=== PATIENT | male | born 1955 | race Caucasian/White ===

== ENCOUNTER 2018-11-03 11:16 | Day surgery (SDC) | payer BC ==
[2018-11-03] MEDS ORDERED: Depo-Medrol 40 MG/ML IM ONE (11:17)
[2018-11-03] MEDS ORDERED: Marcaine 0.5% SDV 10 ML IJ ONE (11:17)
[2018-11-03] MEDS ORDERED: DIPRIVAN 200 MG/20 ML IV ONE (12:13)
[2018-11-03] MEDS ORDERED: Ketamine HCl 50 MG/ML ONE (12:13)
--- NOTE | 2018-11-03 13:49 | XRAY ---
Indication: Right SI joint injection. Intraoperative fluoroscopy was provided for 16 seconds. 2 digital spot images submitted for interpretation demonstrates posterior needle tip projecting over the inferior right SI joint. Correlate with intraoperative findings/report.
--- NOTE | 2018-11-03 14:12 | XRAY ---
16 seconds fluoroscopy time in surgery for right SI joint injection.
[2018-11-03] MEDS ORDERED: Lactated Ringers 1,000 ML IV ONE (15:25)
== END 2018-11-03 12:44 | disposition home or self-care (01) ==
LOC: SDC-PAIN 11:16
PROVIDERS: ATTEND Psychiatry & Neurology Pain Medicine
DX: M46.1 Sacroiliitis, not elsewhere classified (principal); I10 Essential (primary) hypertension; E78.5 Hyperlipidemia, unspecified; K21.9 Gastro-esophageal reflux disease without esophagitis; Z79.899 Other long term (current) drug therapy
CPT/HCPCS: 27096; 72020; 77002; J1030; J2704; G0260

== ENCOUNTER 2019-02-02 09:53 | Day surgery (SDC) | payer BC ==
[2019-02-02] MEDS ORDERED: Marcaine 0.5% SDV 10 ML IJ ONE (09:54)
[2019-02-02] MEDS ORDERED: Depo-Medrol 40 MG/ML IM ONE (09:54)
[2019-02-02] MEDS ORDERED: DIPRIVAN 200 MG/20 ML IV ONE (11:22)
[2019-02-02] MEDS ORDERED: Ketamine HCl 50 MG/ML ONE (11:22)
--- NOTE | 2019-02-02 12:49 | XRAY ---
Indication: Right SI joint injection. Intraoperative fluoroscopy was provided for 10 seconds. 2 digital spot images submitted for interpretation demonstrates posterior needle tip projecting over the inferior right SI joint. Correlated with intraoperative findings/report.
--- NOTE | 2019-02-02 13:02 | XRAY ---
10 seconds fluoroscopy time in surgery for right SI joint injection.
[2019-02-02] MEDS ORDERED: Lactated Ringers 1,000 ML IV ONE (18:21)
== END 2019-02-02 11:50 | disposition home or self-care (01) ==
LOC: SDC-PAIN 09:53
PROVIDERS: ATTEND Psychiatry & Neurology Pain Medicine
DX: M46.1 Sacroiliitis, not elsewhere classified (principal); I10 Essential (primary) hypertension; K21.9 Gastro-esophageal reflux disease without esophagitis; E78.5 Hyperlipidemia, unspecified; Z79.899 Other long term (current) drug therapy; E78.00 Pure hypercholesterolemia, unspecified
CPT/HCPCS: 27096; 72020; 77002; J1030; J2704; G0260

== ENCOUNTER 2019-03-09 14:09 | Day surgery (SDC) | payer BC ==
[2019-03-09] MEDS ORDERED: Marcaine 0.5% SDV 10 ML IJ ONE (14:10)
[2019-03-09] MEDS ORDERED: Xylocaine 1% Vial 30 ML PF IJ ONE (14:10)
[2019-03-09] MEDS ORDERED: Depo-Medrol 40 MG/ML IM ONE (14:10)
[2019-03-09] MEDS ORDERED: VERSED 5 MG/5 ML ONE (14:39)
[2019-03-09] MEDS ORDERED: DIPRIVAN 200 MG/20 ML IV ONE ×2 (15:09→15:19)
[2019-03-09] MEDS ORDERED: Ketamine HCl 50 MG/ML ONE (15:09)
[2019-03-09] MEDS ORDERED: Lactated Ringers 1,000 ML IV ONE (16:03)
--- NOTE | 2019-03-09 16:42 | XRAY ---
Indication: Right SI joint injection. Intraoperative fluoroscopy was provided for 33 seconds. 4 digital spot image submitted for interpretation demonstrates 4 posterior needle tips projecting over the right sacrum. Correlate with intraoperative findings/report.
--- NOTE | 2019-03-09 16:44 | XRAY ---
33 seconds fluoroscopy time in surgery for right SI joint injection.
== END 2019-03-09 15:57 | disposition home or self-care (01) ==
LOC: SDC-PAIN 14:09
PROVIDERS: ATTEND Psychiatry & Neurology Pain Medicine
DX: M46.1 Sacroiliitis, not elsewhere classified (principal); I10 Essential (primary) hypertension; E78.5 Hyperlipidemia, unspecified; E78.00 Pure hypercholesterolemia, unspecified; K21.9 Gastro-esophageal reflux disease without esophagitis; Z79.899 Other long term (current) drug therapy
CPT/HCPCS: 64635; 64640; 72202; 77002; J1030; J2001; J2250; J2704

== ENCOUNTER 2020-10-17 17:19 | Day surgery (SDC) | payer MEDICARE, BC ==
[2020-10-17] MEDS ORDERED: BUPIVACAINE 0.5% VIAL IJ ONE (17:20)
[2020-10-17] MEDS ORDERED: Xylocaine 1% Vial 30 ML PF IJ ONE (17:20)
[2020-10-17] MEDS ORDERED: Depo-Medrol 40 MG/ML IM ONE (17:20)
--- NOTE | 2020-10-17 21:00 | XRAY ---
Indication: Left knee injection. Intraoperative fluoroscopy provided for 12 seconds. Single digital spot image submitted for interpretation demonstrates needle tip projecting over the left femur intercondylar notch. Small amount of contrast injected for needle tip placement. Correlate with intraoperative findings/report.
--- NOTE | 2020-10-18 08:44 | XRAY ---
12 seconds of fluoroscopy was used in surgery for a left intra-articular knee injection.
== END 2020-10-17 19:40 | disposition home or self-care (01) ==
LOC: SDC-PAIN 17:19
PROVIDERS: ATTEND Psychiatry & Neurology Pain Medicine
DX: M17.12 Unilateral primary osteoarthritis, left knee (principal); Z79.899 Other long term (current) drug therapy
CPT/HCPCS: 20610; 73560; 77002; J1030; J2001; Q9966

== ENCOUNTER 2021-03-12 08:18 | Day surgery (SDC) | payer MEDICARE, BC ==
[~2021-03-12 08:18] MED LIST: ACETAZOLAMIDE 250 MG TABLET PO ONE; Ak-Dilate OPHTHALMIC*** 1.065 ML, Cyclogyl 1% OPHTH SOL 5 ML 1.065 ML, GATIFLOXACIN 0.5... OP ONE; BETADINE 5% OPHTHALMIC 30 ML OP ONE; Lactated Ringers 1,000 ML IV SCH; NON-FORMULARY ITEM OP ONE; TETRACAINE 0.5% STERI-UNIT SOL OP ONE; Zofran 4 MG/2 ML VIAL IV PRN; cefUROXime sodium 0.005 GM in Sodium Chloride Flush 30 ML*** 0.5 ML IJ ONE
[2021-03-12] MEDS ORDERED: Epinephrine Preservative Free 1 MG/ML IJ ONE (08:19)
[2021-03-12] MEDS ORDERED: LIDOCAINE HCL 1% 50 MG/5 ML VL PF IJ ONE (08:19)
[2021-03-12] MEDS ORDERED: Lactated Ringers 1,000 ML IV ONE (08:56)
[2021-03-12] MEDS ORDERED: Versed 2 MG/2 ML Injection ONE (11:27)
[2021-03-12] MEDS ORDERED: SUBLIMAZE 100 MCG/2 ML ONE (11:30)
[2021-03-12] MEDS ORDERED: DIPRIVAN 200 MG/20 ML IV ONE (11:34)
[2021-03-12 12:34] VITALS: BP 118/72; PULSE 65; O2SAT 100
== END 2021-03-12 12:45 | disposition home or self-care (01) ==
LOC: SDC 08:18
PROVIDERS: ATTEND Ophthalmology
DX: H25.811 Combined forms of age-related cataract, right eye (principal); Z79.899 Other long term (current) drug therapy
CPT/HCPCS: C1780; J0171; J2001; J2250; J2704; J3010; A9270-GY

== ENCOUNTER 2021-05-29 15:18 | Day surgery (SDC) | payer MEDICARE, BC ==
[2021-05-29] MEDS ORDERED: Xylocaine 1% Vial 30 ML PF IJ ONE (18:00)
[2021-05-29] MEDS ORDERED: Decadron 4 MG INJ IV ONE (18:00)
--- NOTE | 2021-05-29 20:43 | XRAY ---
Indication: Left piriformis injection. Intraoperative fluoroscopy provided for 17 seconds. Single digital spot image submitted for interpretation demonstrates posterior needle tip projecting over the expected left piriformis muscle. Small amount of contrast injected for needle tip placement. Correlate with intraoperative findings/report.
--- NOTE | 2021-05-30 08:58 | XRAY ---
17 seconds fluoroscopy time in surgery for injection of the left piriformis muscle.
== END 2021-05-29 18:35 | disposition home or self-care (01) ==
LOC: SDC-PAIN 15:18
PROVIDERS: ATTEND Psychiatry & Neurology Pain Medicine
DX: M79.18 Myalgia, other site (principal); I10 Essential (primary) hypertension; Z79.899 Other long term (current) drug therapy
CPT/HCPCS: 20552; 72020; 77002; J1100; J2001; Q9966

== ENCOUNTER 2021-07-03 08:28 | Day surgery (SDC) | payer MEDICARE, BC ==
[2021-07-03] MEDS ORDERED: Depo-Medrol 40 MG/ML IM ONE (08:29)
[2021-07-03] MEDS ORDERED: BUPIVACAINE 0.5% VIAL IJ ONE (08:29)
[2021-07-03] MEDS ORDERED: Xylocaine 1% Vial 30 ML PF IJ ONE (08:29)
[2021-07-03] MEDS ORDERED: Decadron 4 MG INJ IV ONE (08:29)
--- NOTE | 2021-07-03 11:54 | XRAY ---
Indication: Left SI joint and left piriformis injections Intraoperative fluoroscopy provided for 24 seconds. 3 digital spot image submitted for interpretation demonstrates posterior needle tip projecting over the inferior left SI joint. Second needle tip projects over the left piriformis muscle with small amount of contrast injected for needle tip placement. Correlate with intraoperative findings/report.
--- NOTE | 2021-07-03 12:11 | XRAY ---
24 seconds fluoroscopy time in surgery for injections of the left SI joint and left piriformis muscle.
== END 2021-07-03 10:45 | disposition home or self-care (01) ==
LOC: SDC-PAIN 08:28
PROVIDERS: ATTEND Psychiatry & Neurology Pain Medicine
DX: M46.1 Sacroiliitis, not elsewhere classified (principal); M79.18 Myalgia, other site; I10 Essential (primary) hypertension; Z79.899 Other long term (current) drug therapy
CPT/HCPCS: 20610; 27096; 72202; 77002; G0260; J1030; J1100; J2001; Q9966

== ENCOUNTER 2022-11-04 06:45 | Day surgery (SDC) | payer MEDICARE, BC ==
[~2022-11-04 06:45] MED LIST changes: -ACETAZOLAMIDE 250 MG TABLET PO ONE; +Ak-Dilate OPHTHALMIC*** 1.065 ML, Cyclogyl 1% OPHTH SOL 1.065 ML, GATIFLOXACIN 0.5% OPH... OP ONE; -Ak-Dilate OPHTHALMIC*** 1.065 ML, Cyclogyl 1% OPHTH SOL 5 ML 1.065 ML, GATIFLOXACIN 0.5... OP ONE; -Zofran 4 MG/2 ML VIAL IV PRN
[2022-11-04] MEDS ORDERED: Zofran 4 MG/2 ML VIAL IV PRN (08:00)
[2022-11-04] MEDS ORDERED: ACETAZOLAMIDE 250 MG TABLET PO ONE (08:00)
== END 2022-11-04 07:35 | disposition home or self-care (01) ==
LOC: SDC 06:45
PROVIDERS: ATTEND Ophthalmology
DX: Z53.8 Procedure and treatment not carried out for other reasons (principal)
CPT/HCPCS: A9270-GY

== ENCOUNTER 2022-11-04 07:44 | Observation (INO) | payer MEDICARE, BC ==
[2022-11-04] MEDS ORDERED: Sodium Chloride 0.9% 1000 ML 1,000 ML IV STA (07:59)
[2022-11-04] MEDS ORDERED: Sodium Chloride 0.9% 1000 ML 1,000 ML ONE (08:08)
[2022-11-04] MEDS ORDERED: Zestril 20 MG PO ONE (08:12)
[2022-11-04] MEDS ORDERED: Toprol-Xl 25MG Tablets PO ONE (08:12)
[2022-11-04 08:16] LABS: Absolute Neutrophil Ct (ANC) 5.12 x10^3/uL (1.4-6.9); BASOPHIL % 1.2 % (0.0-0.4); Eosinophil % 4.4 % (0.00-5.0); Eosinophil (Absolute #) 0.38 x10^3/uL (0-0.5); Hematocrit 42.2 % (42-50); Hemoglobin 13.9 g/dL (12.5-18.0); IMMATURE GRAN # 0.07 x10^3u/L (0.00-0.03); IMMATURE GRAN % 0.8 % (0.00-0.4); Lymphocyte (Absolute #) 1.96 x10^3/uL (1.0-4.6); Lymphocytes % 22.7 % (24.0-44.0); Mean Cell Volume 92.5 fL (78-100); Mean Corpuscular Hemoglobin 30.5 pg (26-32); Mean Corpuscular Hgb Concent. 32.9 g/dL (32-36); Mean Platelet Volume 10.2 fL (7.5-11.0); Monocyte (Absolute #) 1.02 x10^3/uL (0.0-1.3); Monocytes % 11.8 % (0.0-12.0); Neutrophil % 59.1 % (36.0-66.0); Platelet Count 189 x10^3/uL (150-450); Red Blood Count 4.56 x10^6/uL (4.1-5.6); Red Cell Distribution Width 12.6 % (11.5-14.0); White Blood Count 8.7 x10^3/uL (4.0-10.5)
[2022-11-04] MEDS ORDERED: Toprol-Xl 25MG Tablets ONE (08:16)
--- NOTE | 2022-11-04 08:18 | ERPHSYRPT ---
- History of Present Illness Time Seen by Provider: 11/04/22 08:14 Exam Limitations: no limitations Patient Subjective Stated Complaint: Pt states "I was going for eye surgery and I started to get these little twinges of chest pain and a high heart rate." Triage Nursing Assessment: PT presented alert and oriented X 3, skin pwd. Pt ambulates with an upright steady gait, able to speak in clear full sentences. Pt arrived from outpatient surgery and he was getting ready when he started to get a high heart rate. Physician History: Patient is a 67-year-old male presents to our ED for evaluation of tachycardia and chest pain. Patient was in the preop area. Patient was awaiting surgery for cataract. Patient has been n.p.o. Patient has not taken his a.m. medications including lisinopril and metoprolol. While in preop patient developed his symptomology. Patient was assessed and found to be tachycardic with a rate in the 140s. Surgery was canceled and patient was brought to our ED. Patient states he has not taken his a.m. meds. Per report patient was instructed to take his cardiac meds however may have misunderstood the instructions and did not take his medications this morning. No active chest pain at this time. No nausea vomiting or diaphoresis. Symptoms are mild to moderate in intensity. No specific worsening or improving factors. Daughter at bedside. They voiced no other complaints or concerns at this time. Portions of this note were created with voice recognition technology. There may be grammatical, spelling, punctuation or sound alike errors Timing/Duration: today Severity: moderate Modifying Factors: Improves With: nothing Associated Symptoms: denies symptoms Allergies/Adverse Reactions: oxytetracycline [From Terramycin] Allergy (Verified 10/24/22 15:26) oxytetracycline HCl [From Terramycin] Allergy (Verified 10/24/22 15:26) Sulfa (Sulfonamide Antibiotics) Allergy (Verified 10/24/22 15:26) INSAIDS Allergy (Uncoded 03/12/21 08:57) Home Medications: Fenofibrate,Micronized [Lofibra] 200 mg PO DAILY 09/20/15 [History] Multivitamin [Multivitamins] 1 each PO DAILY 09/20/15 [History] Omeprazole 20 MG [Prilosec 20 mg] 20 mg PO DAILY 09/20/15 [History] buPROPion HCL [Wellbutrin Xl] 300 mg PO DAILY 09/20/15 [History] Amitriptyline HCl 10 mg PO HS 03/11/21 [History] Metoprolol Succinate [Toprol Xl] 25 mg PO BID 03/11/21 [History] lisinopriL [Zestril] 20 mg PO DAILY 03/11/21 [History] Fluticasone/Umeclidin/Vilanter [Trelegy Ellipta 200-62.5-25] 1 each IH DAILY 10/24/22 [History] Montelukast Sodium 10 mg [Singulair 10 MG] 10 mg PO DAILY 10/24/22 [History] Oxycodone / APAP 10/325 mg [Oxycodone-Acetaminophen 10-325] 1 each PO DAILY 11/04/22 [History] Hx Tetanus, Diphtheria Vaccination/Date Given: Yes Hx Influenza Vaccination/Date Given: Yes Hx Pneumococcal Vaccination/Date Given: Yes Immunizations Up to Date: Yes Travel Risk - International Travel Have you traveled outside of the country in past 3 weeks: No - Coronavirus Screening Are you exhibiting any of the following symptoms?: No Close contact with a COVID-19 positive Pt in past 14-21 Days: No - Vaccine Status Have you recieved a Covid-19 vaccination: Yes 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 - Vaccination Dates Date of 2cond Vaccination (if applicable): 2020 - Review of Systems Constitutional: No Symptoms, No Fever, No Chills Eyes: No Symptoms Ears, Nose, & Throat: No Symptoms Respiratory: No Symptoms, No Cough, No Dyspnea Cardiac: No Symptoms, No Chest Pain, No Edema, No Syncope Abdominal/Gastrointestinal: No Symptoms, No Abdominal Pain, No Nausea, No Vomiting, No Diarrhea Genitourinary Symptoms: No Symptoms, No Dysuria Musculoskeletal: No Symptoms, No Back Pain, No Neck Pain Skin: No Symptoms, No Rash Neurological: No Symptoms, No Dizziness, No Focal Weakness, No Sensory Changes Psychological: No Symptoms Endocrine: No Symptoms Hematologic/Lymphatic: No Symptoms Immunological/Allergic: No Symptoms All Other Systems: Reviewed and Negative - Past Medical History Neurological History: No Pertinent History ENT History: Cataracts Cardiac History: High Cholesterol, Hypertension Respiratory History: No Pertinent History Endocrine Medical History: No Pertinent History Musculoskeletal History: Osteoarthritis GI Medical History: GERD, Hernia History: No Pertinent History Psycho-Social History: No Pertinent History Male Reproductive Disorders: No Pertinent History Other Medical History: HX RIGHT PARTIAL KNEE REPLACMENT MEDIALLY 2014. BILATERA L TRANSPOSITION ULNAR NERVE AND CARPAL TUNNEL RELEASE 2019 - Past Surgical History Past Surgical History: Yes Neuro Surgical History: No Pertinent History Cardiac: No Pertinent History Respiratory: No Pertinent History Gastrointestinal: No Pertinent History Genitourinary: No Pertinent History Musculoskeletal: Joint Replacement Male Surgical History: No Pertinent History Other Surgical History: right knee replacement. both elbows. carpal tunnel - Social History Smoking Status: Former smoker Exposure to second hand smoke: No Drug Use: none Patient Lives Alone: No - Nursing Vital Signs Nursing Vital Signs: Initial Vital Signs Pulse Rate 141 H 11/04/22 07:46 Respiratory Rate 21 11/04/22 07:46 Blood Pressure 157/127 11/04/22 07:46 O2 Sat by Pulse Oximetry 98 11/04/22 07:46 Pain Scale Pain Intensity 1 - Physical Exam General Appearance: no apparent distress, alert Eye Exam: PERRL/EOMI, eyes nml inspection Ears, Nose, Throat Exam: normal ENT inspection, TMs normal, pharynx normal, moist mucous membranes Neck Exam: normal inspection, non-tender, supple, full range of motion Respiratory Exam: normal breath sounds, lungs clear, airway intact, No respiratory distress Cardiovascular Exam: regular rate/rhythm, normal heart sounds, normal peripheral pulses Gastrointestinal/Abdomen Exam: soft, normal bowel sounds, No tenderness, No mass Back Exam: normal inspection, normal range of motion, No CVA tenderness, No vertebral tenderness Extremity Exam: normal inspection, normal range of motion, pelvis stable Neurologic Exam: alert, oriented x 3, cooperative, normal mood/affect, nml cerebellar function, nml station & gait, sensation nml, No motor deficits Skin Exam: normal color, warm, dry, No rash Lymphatic Exam: No adenopathy SpO2 Interpretation: normal SpO2: 98 O2 Delivery: Room Air - Course Nursing assessment & vital signs reviewed: Yes EKG Interpreted by Me: RATE, Sinus Tach, NORMAL AXIS, NORMAL INTERVALS Ordered Tests: Active Orders 24 hr Category Date Time Status Elevator Constructor Electric STAT Care 11/04/22 07:59 Active EKG-ER Only STAT Care 11/04/22 07:59 Active Pulse Oximetry (ED) STAT Care 11/04/22 07:59 Active CHEST 1 VIEW (PORTABLE) Stat Exams 11/04/22 07:59 Completed CBC W DIFF Stat Lab 11/04/22 08:17 Completed CMP Stat Lab 11/04/22 08:17 Completed D-DIMER QUANTITATIVE Stat Lab 11/04/22 08:17 Completed MAGNESIUM Stat Lab 11/04/22 08:17 Completed NT PRO BNPII Stat Lab 11/04/22 08:17 Completed TROPONIN Q4H Lab 11/04/22 08:17 Completed TROPONIN Q4H Lab 11/04/22 12:00 Ordered TROPONIN Q4H Lab 11/04/22 16:00 Ordered TSH [TSH, 3RD Generation] Stat Lab 11/04/22 09:04 Ordered Transfer Order Routine Transfer 11/04/22 Ordered Medication Summary Generic Name Dose Route Start Last Admin Trade Name Freq PRN Reason Stop Dose Admin Magnesium Sulfate/Dextrose 100 mls @ 100 mls/hr 11/04/22 09:15 11/04/22 09:20 Magnesium 1 Gm / 100 Ml D5w IV 11/04/22 11:14 100 mls/hr Q1H DASH Administration Discontinued Medications Generic Name Dose Route Start Last Admin Trade Name Freq PRN Reason Stop Dose Admin Sodium Chloride 1,000 mls @ 999 mls/hr 11/04/22 07:59 11/04/22 09:13 Sodium Chloride 0.9% 1000 Ml IV 11/04/22 08:59 Infused .Q1H1M STA Infusion Sodium Chloride Confirm 11/04/22 08:08 Sodium Chloride 0.9% 1000 Ml Administered 11/04/22 08:09 Dose 1,000 mls @ ud .ROUTE .STK-MED ONE Lisinopril 20 mg 11/04/22 08:12 11/04/22 08:23 Lisinopril 20 Mg Tablet PO 11/04/22 08:13 20 mg STAT ONE Administration Metoprolol Succinate 25 mg 11/04/22 08:12 11/04/22 08:17 Metoprolol Succinate 25 Mg Xl Tab PO 11/04/22 08:13 25 mg STAT ONE Administration Metoprolol Succinate Confirm 11/04/22 08:16 Metoprolol Succinate 25 Mg Xl Tab Administered 11/04/22 08:17 Dose 25 mg .ROUTE .STK-MED ONE Lab/Rad Data: Laboratory Result Diagrams 11/04/22 08:17 11/04/22 08:17 Laboratory Results 11/04/22 11/04/22 11/04/22 Range/Units 08:17 08:17 08:17 WBC (4.0-10.5) x10^3/uL RBC (4.1-5.6) x10^6/uL Hgb (12.5-18.0) g/dL Hct (42-50) % MCV (78-100) fL MCH (26-32) pg MCHC (32-36) g/dL RDW (11.5-14.0) % Plt Count (150-450) x10^3/uL MPV (7.5-11.0) fL Gran % (36.0-66.0) % Immature Gran % (Auto) (0.00-0.4) % Nucleat RBC Rel Count (0.00-0.1) % Eos # (Auto) (0-0.5) x10^3/uL Immature Gran # (Auto) (0.00-0.03) x10^3u/L Absolute Lymphs (auto) (1.0-4.6) x10^3/uL Absolute Monos (auto) (0.0-1.3) x10^3/uL Absolute Nucleated RBC (0.00-0.01) x10^3u/L Lymphocytes % (24.0-44.0) % Monocytes % (0.0-12.0) % Eosinophils % (0.00-5.0) % Basophils % (0.0-0.4) % Absolute Granulocytes (1.4-6.9) x10^3/uL Basophils # (0-0.4) x10^3/uL D-Dimer 0.32 (0.0-0.50) mg/L Sodium 140 (137-145) mmol/L Potassium 4.5 (3.5-5.1) mmol/L Chloride 107 (98-107) mmol/L Carbon Dioxide 24 (22-30) mmol/L Anion Gap 14.3 (5-15) MEQ/L BUN 13 (9-20) mg/dL Creatinine 0.86 (0.66-1.25) mg/dL Estimated GFR > 60.0 ML/MIN Glucose 123 H (74-106) mg/dL Calcium 10.0 (8.4-10.2) mg/dL Magnesium 1.5 L (1.6-2.3) mg/dL Total Bilirubin 0.70 (0.2-1.3) mg/dL AST 42 (17-59) U/L ALT 33 (0-50) U/L Alkaline Phosphatase 52 (38-126) U/L Troponin I < 0.012 (0.000-0.034) ng/mL NT-Pro-B Natriuret Pep 814 (<300) pg/mL Serum Total Protein 7.4 (6.3-8.2) g/dL Albumin 4.3 (3.5-5.0) g/dL 11/04/22 Range/Units 08:17 WBC 8.7 (4.0-10.5) x10^3/uL RBC 4.56 (4.1-5.6) x10^6/uL Hgb 13.9 (12.5-18.0) g/dL Hct 42.2 (42-50) % MCV 92.5 (78-100) fL MCH 30.5 (26-32) pg MCHC 32.9 (32-36) g/dL RDW 12.6 (11.5-14.0) % Plt Count 189 (150-450) x10^3/uL MPV 10.2 (7.5-11.0) fL Gran % 59.1 (36.0-66.0) % Immature Gran % (Auto) 0.8 H (0.00-0.4) % Nucleat RBC Rel Count 0.0 (0.00-0.1) % Eos # (Auto) 0.38 (0-0.5) x10^3/uL Immature Gran # (Auto) 0.07 H (0.00-0.03) x10^3u/L Absolute Lymphs (auto) 1.96 (1.0-4.6) x10^3/uL Absolute Monos (auto) 1.02 (0.0-1.3) x10^3/uL Absolute Nucleated RBC 0.00 (0.00-0.01) x10^3u/L Lymphocytes % 22.7 L (24.0-44.0) % Monocytes % 11.8 (0.0-12.0) % Eosinophils % 4.4 (0.00-5.0) % Basophils % 1.2 (0.0-0.4) % Absolute Granulocytes 5.12 (1.4-6.9) x10^3/uL Basophils # 0.10 (0-0.4) x10^3/uL D-Dimer (0.0-0.50) mg/L Sodium (137-145) mmol/L Potassium (3.5-5.1) mmol/L Chloride (98-107) mmol/L Carbon Dioxide (22-30) mmol/L Anion Gap (5-15) MEQ/L BUN (9-20) mg/dL Creatinine (0.66-1.25) mg/dL Estimated GFR ML/MIN Glucose (74-106) mg/dL Calcium (8.4-10.2) mg/dL Magnesium (1.6-2.3) mg/dL Total Bilirubin (0.2-1.3) mg/dL AST (17-59) U/L ALT (0-50) U/L Alkaline Phosphatase (38-126) U/L Troponin I (0.000-0.034) ng/mL NT-Pro-B Natriuret Pep (<300) pg/mL Serum Total Protein (6.3-8.2) g/dL Albumin (3.5-5.0) g/dL - Progress Progress: improved Progress Note: Patient is 67-year-old male presents to our ED from preop area for evaluation of chest pain and tachycardia. Patient was preparing for cataract surgery. Patient not taking his a.m. meds. Patient was n.p.o. for the procedure. Procedure was canceled due to abnormal EKG. No active chest pain upon arrival to our ED. Patient's blood pressure was elevated. Resting tachycardia. Patient received normal saline and his a.m. meds to help address the tachycardia. Patient observed for approximately 2 hours. No significant improvement in his heart rate. TSH was added. Magnesium level was ordered. Magnesium was low. Magnesium replacement ordered. Chest x-ray shows no acute pathology. CBC CMP sent and unremarkable. D-dimer negative. BNP negative. Initial troponin negative. Patient will be admitted for persistent tachycardia, hypertension, hypomagnesemia. Plan of care discussed with patient. He agrees to admission at [facility] for further evaluation and treatment. Case discussed with Dr. Law Crowder at approximately 9:[address] Crowder excepts admission to observation. Portions of this note were created with voice recognition technology. There may be grammatical, spelling, punctuation or sound alike errors Complexity of problem addressed is moderate acute complicated No critical care time Complex data reviewed and analyzed is extensive testing ordered results rev iewed and analyzed. Clinical correlation made between findings and history and physical exam. Patient's a.m. medications were placed. IV fluids administered. Magnesium sulfate replacement ordered. Patient will require more observation and likely additional medications to control heart rate. Will admit to observation for further evaluation and treatment. Management and plan of care discussed with Dr. Crowder who excepts admission to observation. Risk complication and or risk of morbidity/mortality of patient management is high. Patient will require hospitalization and additional monitoring for further evaluation and treatment. Time spent to admit patient is approximately 15 minutes. Plan of care established for shared decision making. at bedside. They agree with plan of care. They voiced no other complaints or concerns at this time. Portions of this note were created with voice recognition technology. There may be grammatical, spelling, punctuation or sound alike errors 11/04/22 09:28 Counseled pt/family regarding: lab results, diagnosis, rad results - Departure Departure Disposition: Observation Clinical Impression: Sinus tachycardia, Hypomagnesemia, Hypertension, Lung granuloma Condition: Stable Critical Care Time: No Referrals: REE ENAMORADO MD [Primary Care Provider] - Follow up/PCP as directed
[2022-11-04 08:39] LABS: ALBUMIN 4.3 g/dL (3.5-5.0); ALKALINE PHOSPHATASE 52 U/L (38-126); ANION GAP 14.3 MEQ/L (5-15); BLOOD UREA NITROGEN 13 mg/dL (9-20); CHLORIDE 107 mmol/L (98-107); Carbon Dioxide 24 mmol/L (22-30); Creatinine 1 0.86 mg/dL (0.66-1.25); EST GLOMERULAR FILTRATION RATE > 60.0 ML/MIN; Glucose 123 mg/dL (74-106); MAGNESIUM 1.5 mg/dL (1.6-2.3); NT PRO BNPII 814 pg/mL (<300); Potassium 4.5 mmol/L (3.5-5.1); SGOT/AST 42 U/L (17-59); SGPT/ALT 33 U/L (0-50); SODIUM 140 mmol/L (137-145); Total Protein 7.4 g/dL (6.3-8.2)
--- NOTE | 2022-11-04 08:56 | XRAY ---
CLINICAL HISTORY:sob COMPARISON:None. TECHNIQUE:X-ray of the chest, AP view. FINDINGS: A radiographic examination of the chest demonstrates clear lung celaya other than a small 4 mm rounded opacity of indeterminant significance in the right upper lung zone. Normal configuration of the mediastinum. Left hilum appears prominent, this might be positional. Few prominent tubular cystic lucencies noted in the left perihilar location may represent early central bronchiectatic changes. The cardiac size is normal. The bony thorax is unremarkable. The costophrenic and cardiophrenic angles are clear. IMPRESSION: 1. A tiny granuloma noted right lung appears normal. No follow-up is warranted. 2. Few prominent tubular cystic lucencies noted in the left perihilar location may represent early central bronchiectatic changes. 3. No other significant abnormality was seen. 4. Further evaluation by HRCT chest may be considered. Electronically Signed by: Sravan Marion MD. (11/04/2022 07:55:58 PRICING INTERN)
[2022-11-04] MEDS: Magnesium 1 Gm / 100 Ml D5W*** 100 ML IV SCH ×2 (09:20→09:50)
[2022-11-04] MEDS ORDERED: MEDICATION INTERVENTION MC SCH (12:00)
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
[2022-11-04] MEDS: Protonix 40MG Tablet PO SCH (12:56)
[2022-11-04] MEDS: Toprol Xl 50 MG PO SCH ×2 (12:56→23:08)
[2022-11-04] MEDS: THERAGRAN MULTIVITAMIN PO SCH (12:57)
[2022-11-04] MEDS: Singulair 10 MG PO SCH (12:57)
[2022-11-04] MEDS: Wellbutrin XL 150 MG PO SCH (12:57)
[2022-11-04] MEDS: OXYCODONE-ACETAMINOPHEN 10-325 PO SCH ×2 (14:14→20:00)
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
[2022-11-04] MEDS: Toprol Xl 50 MG PO ONE ×2 (19:35→19:40)
[2022-11-04] MEDS ORDERED: LOPRESSOR INJECTION IV PRN (21:16)
[2022-11-04] MEDS: Zestril 10 MG PO SCH (21:51)
[2022-11-04] MEDS ORDERED: Tricor 145 MG PO SCH (22:00)
[2022-11-04] MEDS ORDERED: FENOFIBRATE MICRONIZED 200 MG PO SCH (22:00)
[2022-11-04] MEDS ORDERED: ELAVIL 10 MG PO SCH (22:00)
[2022-11-04] MEDS ORDERED: NON-FORMULARY ITEM (Fluticasone/Umeclidin/Vilanter [Trelegy Ellipta 200-62.5-25] 1 EACH Bl IH SCH (22:00)
[2022-11-05] MEDS ORDERED: OXYCODONE-ACETAMINOPHEN 10-325 PO SCH ×3 (04:15→14:00)
[2022-11-05 07:22] LABS: Hematocrit 39.1 % (42-50); Hemoglobin 12.7 g/dL (12.5-18.0); Mean Cell Volume 93.8 fL (78-100); Mean Corpuscular Hemoglobin 30.5 pg (26-32); Mean Corpuscular Hgb Concent. 32.5 g/dL (32-36); Platelet Count 156 x10^3/uL (150-450); Red Blood Count 4.17 x10^6/uL (4.1-5.6); Red Cell Distribution Width 12.6 % (11.5-14.0)
[2022-11-05 07:26] VITALS: O2SAT 98
[2022-11-05 07:38] LABS: ANION GAP 12.6 MEQ/L (5-15); BLOOD UREA NITROGEN 16 mg/dL (9-20); CHLORIDE 106 mmol/L (98-107); Calcium 8.8 mg/dL (8.4-10.2); Carbon Dioxide 22 mmol/L (22-30); Creatinine 1 0.89 mg/dL (0.66-1.25); EST GLOMERULAR FILTRATION RATE > 60.0 ML/MIN; Glucose 109 mg/dL (74-106); SODIUM 137 mmol/L (137-145)
[2022-11-05] MEDS: Toprol Xl 50 MG PO SCH (09:08)
[2022-11-05] MEDS: Zestril 10 MG PO SCH (09:08)
[2022-11-05] MEDS: Wellbutrin XL 150 MG PO SCH (09:08)
[2022-11-05] MEDS: THERAGRAN MULTIVITAMIN PO SCH (09:08)
[2022-11-05] MEDS: Singulair 10 MG PO SCH (09:08)
[2022-11-05] MEDS: Protonix 40MG Tablet PO SCH (09:08)
[2022-11-05] MEDS ORDERED: NON-FORMULARY ITEM (Bupropion Hcl [Wellbutrin Xl] 300 MG Tab.Er.24h) PO SCH (10:00)
[2022-11-05] MEDS ORDERED: NON-FORMULARY ITEM (Omeprazole 20 Mg [Prilosec 20 Mg] 20 MG Capsule.Dr) PO SCH (10:00)
[2022-11-05] MEDS ORDERED: NON-FORMULARY ITEM (Multivitamin [Multivitamins] 1 EACH Capsule) PO SCH (10:00)
[2022-11-05] MEDS ORDERED: ELIQUIS 2.5 MG TABLET PO SCH (12:00)
[2022-11-05] MEDS ORDERED: Cordarone 200 MG PO SCH (12:00)
[2022-11-05 12:06] VITALS: BP 140/89; PULSE 98; RESP 20; TEMP 97.2
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
[2022-11-05] MEDS ORDERED: Toprol Xl 50 MG PO ONE (13:15)
[2022-11-05] MEDS ORDERED: Toprol Xl 100 MG PO SCH (22:00)
== END 2022-11-05 13:50 | disposition home or self-care (01) ==
LOC: ED 07:44 → MED SURG 10:05
PROVIDERS: ADMIT Internal Medicine; ATTEND Internal Medicine
DX: F43.0 Acute stress reaction (principal); I10 Essential (primary) hypertension; E83.42 Hypomagnesemia; R00.0 Tachycardia, unspecified; I48.91 Unspecified atrial fibrillation; R07.9 Chest pain, unspecified; Z79.899 Other long term (current) drug therapy; Z20.828 Contact with and (suspected) exposure to other viral communicable diseases
CPT/HCPCS: 36000; 36415; 71045; 80048; 80053; 83735; 83880; 84443; 84484; 85025; 85027; 85379; 93005; 93041; 93268; 93306; 94760; 96365; 96366; 99285; G0378; Q3014; J3475; A9270-GY

== ENCOUNTER 2023-03-10 06:59 | Day surgery (SDC) | payer MEDICARE, BC ==
[2023-03-10] MEDS ORDERED: TETRACAINE 0.5% STERI-UNIT SOL OP ONE (07:00)
[2023-03-10] MEDS ORDERED: BETADINE 5% OPHTHALMIC 30 ML OP ONE (07:00)
[2023-03-10] MEDS ORDERED: cefUROXime sodium 0.005 GM in Sodium Chloride Flush 30 ML*** 0.5 ML IJ ONE (07:00)
[2023-03-10] MEDS ORDERED: Lactated Ringers 1,000 ML IV SCH (07:00)
[2023-03-10] MEDS ORDERED: NON-FORMULARY ITEM OP ONE (07:00)
[2023-03-10] MEDS ORDERED: Ak-Dilate OPHTHALMIC*** 1.065 ML, Cyclogyl 1% OPHTH SOL 1.065 ML, GATIFLOXACIN 0.5% OPH... OP ONE ×4 (07:00)
[2023-03-10] MEDS ORDERED: Lactated Ringers 1,000 ML IV ONE (07:21)
[2023-03-10 07:39] VITALS: RESP 16
[2023-03-10] MEDS: TETRACAINE 0.5% STERI-UNIT SOL OP ONE ×2 (07:45→08:12)
[2023-03-10] MEDS ORDERED: DIPRIVAN 200 MG/20 ML IV ONE (08:31)
[2023-03-10] MEDS ORDERED: SUBLIMAZE 100 MCG/2 ML ONE (08:38)
[2023-03-10] MEDS ORDERED: Versed 2 MG/2 ML Injection ONE (08:38)
[2023-03-10] MEDS ORDERED: TOBRAMYCIN OP SCH (08:45)
[2023-03-10] MEDS ORDERED: [UNRECOGNIZED DRUG - OTHER] OP SCH (08:45)
[2023-03-10] MEDS ORDERED: Epinephrine Preservative Free 1 MG/ML IJ ONE (09:00)
[2023-03-10] MEDS ORDERED: Zofran 4 MG/2 ML VIAL IV PRN (09:00)
[2023-03-10 09:15] VITALS: BP 130/78; PULSE 88; O2SAT 96
[2023-03-10 09:29] VITALS: TEMP 97.2
== END 2023-03-10 09:29 | disposition home or self-care (01) ==
LOC: SDC 06:59
PROVIDERS: ATTEND Ophthalmology
DX: H25.812 Combined forms of age-related cataract, left eye (principal)
CPT/HCPCS: C1780; J0171; J2250; J2704; J3010; A9270-GY

== ENCOUNTER 2024-01-13 08:37 | Day surgery (SDC) | payer MEDICARE, BC ==
[2024-01-13] MEDS ORDERED: Depo-Medrol 40 MG/ML IM ONE (08:38)
[2024-01-13] MEDS ORDERED: Xylocaine-Mpf 2% 5 Ml Vial IJ ONE (08:38)
[2024-01-13] MEDS ORDERED: DIPRIVAN 200 MG/20 ML IV ONE (10:29)
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
--- NOTE | 2024-01-13 12:36 | XRAY ---
11 seconds of fluoroscopy was used in surgery for a bilateral L4-S1 MBB.
== END 2024-01-13 10:57 | disposition home or self-care (01) ==
LOC: SDC-PAIN 08:37
PROVIDERS: ATTEND Psychiatry & Neurology Pain Medicine
DX: M47.816 Spondylosis without myelopathy or radiculopathy, lumbar region (principal)
CPT/HCPCS: 64493; 64494; 72020; 77002; J2704

== ENCOUNTER 2024-03-09 06:51 | Day surgery (SDC) | payer MEDICARE, BC ==
[2024-03-09] MEDS ORDERED: Depo-Medrol 40 MG/ML IM ONE (06:52)
[2024-03-09] MEDS ORDERED: BUPIVACAINE 0.5% VIAL IJ ONE (06:52)
[2024-03-09] MEDS ORDERED: DIPRIVAN 200 MG/20 ML IV ONE (08:33)
--- NOTE | 2024-03-09 10:06 | XRAY ---
Indication: Bilateral L4-S1 MBB. Intraoperative fluoroscopy provided for 8 seconds. Single digital spot image submitted for interpretation demonstrates posterior needle tips projecting over expected left and right L4-S1 nerve roots. Correlate with intraoperative findings/report.
--- NOTE | 2024-03-09 11:01 | XRAY ---
8 seconds of fluoroscopy was used in surgery for a bilateral L4-S1 MBB.
== END 2024-03-09 09:04 | disposition home or self-care (01) ==
LOC: SDC-PAIN 06:51
PROVIDERS: ATTEND Psychiatry & Neurology Pain Medicine
DX: M47.816 Spondylosis without myelopathy or radiculopathy, lumbar region (principal)
CPT/HCPCS: 64493; 64494; 72020; 77002; J2704

== ENCOUNTER 2024-03-30 06:57 | Day surgery (SDC) | payer MEDICARE, BC ==
[2024-03-30] MEDS ORDERED: propofoL IV ONE (07:58)
--- NOTE | 2024-03-30 10:05 | XRAY ---
Indication: Right L4-S1 RFA. Intraoperative fluoroscopy provided for 19 seconds. 4 digital spot images submitted for interpretation demonstrates posterior needle tips projecting over the expected right L4-S1 nerve roots. Correlate with intraoperative findings/report.
--- NOTE | 2024-03-30 10:39 | XRAY ---
19 seconds of fluoroscopy was used in surgery for a right L4-S1 RFA.
== END 2024-03-30 08:36 | disposition home or self-care (01) ==
LOC: SDC-PAIN 06:57
PROVIDERS: ATTEND Psychiatry & Neurology Pain Medicine
DX: M47.816 Spondylosis without myelopathy or radiculopathy, lumbar region (principal)
CPT/HCPCS: 64635; 64636; 72100; 77002; J2704

== ENCOUNTER 2024-04-13 06:58 | Day surgery (SDC) | payer MEDICARE, BC ==
[2024-04-13] MEDS ORDERED: Depo-Medrol 40 MG/ML IM ONE (06:59)
[2024-04-13] MEDS ORDERED: LIDOCAINE HCL 1% AMPUL 5 ML IJ ONE (06:59)
[2024-04-13] MEDS ORDERED: BUPIVACAINE 0.5% VIAL IJ ONE (06:59)
[2024-04-13] MEDS ORDERED: propofoL IV ONE (08:12)
--- NOTE | 2024-04-13 09:36 | XRAY ---
Indication: Left L4-S1 RFA. Intraoperative fluoroscopy provided for 24 seconds. 7 digital spot images submitted for interpretation demonstrates posterior needle tips projecting over the expected left L4-S1 nerve roots. Correlate with intraoperative findings/report.
--- NOTE | 2024-04-13 10:06 | XRAY ---
24 seconds of fluoroscopy was used in surgery for a left L4-S1 RFA.
== END 2024-04-13 08:26 | disposition home or self-care (01) ==
LOC: SDC-PAIN 06:58
PROVIDERS: ATTEND Psychiatry & Neurology Pain Medicine
DX: M47.817 Spondylosis without myelopathy or radiculopathy, lumbosacral region (principal)
CPT/HCPCS: 64635; 64636; 72100; 77002; J2704